=== PATIENT | female | born 1990 | race Two or more races ===

== ENCOUNTER 2020-06-20 16:04 | Inpatient (IN) ==
[2020-06-20] MEDS ORDERED: DINOPROSTONE VAG GEL 10 MG SYRINGE VAG ONE ×2 (16:18→17:00)
[2020-06-20] MEDS ORDERED: MEPERIDINE 50 MG/1 ML VIAL IV PRN (16:58)
[2020-06-20] MEDS ORDERED: ONDANSETRON 4 MG/2 ML VIAL IV PRN (16:58)
[2020-06-20] MEDS ORDERED: BUTORPHANOL 2 MG/ML VIAL IV PRN (16:58)
[2020-06-20 17:38] LABS: Basophils % 0.3 % (0.0-0.8); Eosinophils # 0.1 10*3/uL (0.0-0.87); Eosinophils % 0.4 % (0.00-10.9); Hematocrit 32.4 VOL% (35.7-47.0); Hemoglobin 10.2 GM/DL (12.0-16.0); Immature Granulocytes % 1.5 %; Immature Granulocytes Absolute 0.19 #; Lymphocytes # 2.5 10*3/uL (1.4-4.0); Lymphocytes % 19.9 % (21.3-54.2); Mean Corpuscular HGB Conc 31.5 GM/DL (32-36); Monocytes % 6.6 % (1.7-12.7); Neutrophils % 71.3 % (38.7-73.9); Platelet Count 237 T/CUMM (130-400); Red Blood Count 3.34 MC/CUMM (3.8-5.5); Red Cell Distribution Width 13.5 % (9.3-17.3); White Blood Count 12.6 T/CUMM (4-12)
[2020-06-20 17:50] LABS: Alanine Aminotransferase 17 U/L (13-56); Albumin 2.7 G/DL (3.4-5.0); Alkaline Phosphatase 151 U/L (45-117); Aspartate Amino Transferase 11 U/L (0-37); Bilirubin,Total < 0.39 MG/DL (0.2-1.0); Blood Urea Nitrogen 7 MG/DL (7-18); Calcium 8.7 MG/DL (8.5-10.1); Estimated Glom Filtration Rate 159 ML/MIN; Glucose 91 MG/DL (74-106); Osmolality,Calculated 272.7 MOS/KG (273-304); Total Protein 6.5 G/DL (6.4-8.3)
[2020-06-21] MEDS: LACTATED RINGERS 1,000 ML IV SCH ×4 (02:10→15:13)
[2020-06-21] MEDS: OXYTOCIN/LR 20 UNIT/1,000 ML BAG IV SCH ×2 (02:10→18:00)
[2020-06-21] MEDS ORDERED: CITRIC ACID/SODIUM CITRATE 30 ML UDCUP PO ONE (07:20)
[2020-06-21] MEDS ORDERED: FAMOTIDINE 20 MG/2 ML VIAL IV ONE (07:20)
[2020-06-21] MEDS ORDERED: NALOXONE 0.4 MG/ML VIAL IV PRN (07:20)
[2020-06-21] MEDS ORDERED: PROMETHAZINE 25 MG/1 ML VIAL IM ONE (07:20)
[2020-06-21] MEDS ORDERED: ePHEDrine 50 MG/ML VIAL IV PRN (07:20)
[2020-06-21] MEDS ORDERED: hydrOXYzine HCL 25 MG/1 ML VIAL IM PRN (07:20)
[2020-06-21] MEDS ORDERED: LACTATED RINGERS 1,000 ML IV ONE (07:20)
[2020-06-21] MEDS ORDERED: diphenhydrAMINE 50 MG/1 ML VIAL IV PRN ×2 (07:20)
[2020-06-21] MEDS: fentaNYL 2 MCG/ROPIV 0.2% EPID 100 ML EPIDURAL SCH ×2 (08:20→15:15)
[2020-06-21 11:18] LABS: Amorphous Crystals,Urine Occasional /HPF (Few); Apearance,Urine CLEAR (Clear); Bacteria,Urine Occasional /HPF (Few); Bilirubin,Urine Negative (Negative); Blood, Urine Moderate mg/dL (Negative); Calcium Oxalate Crystals,Urine Occasional /HPF (Few); Glucose,Urine (UA) Negative (Negative); Ketones,Urine Negative (Negative); Mucus,Urine Occasional /LPF (Occasional); Nitrite,Urine Negative (Negative); Protein,Urine Negative; RBC,Urine 62 /HPF (0-4); Squamous Epithelial Cell,Urine Occasional /HPF (0-10); Urine Color Yellow (Yellow); Urine Specific Gravity 1.016 (1.001-1.035); Urine Urobilinogen < 2.0 EU/DL (0.2-1.0); WBC,Urine 1 /HPF (0-6)
[2020-06-21] MEDS ORDERED: LIDOCAINE MPF 2% /EPI 20 ML VIAL ONE ×2 (11:47→15:22)
[2020-06-21] MEDS ORDERED: fentaNYL 100 MCG/2 ML VIAL ONE ×2 (11:47→15:22)
[2020-06-21] MEDS ORDERED: CARBOPROST TROMETHAMINE 250 MCG/ML AMP IM ONE (16:37)
[2020-06-21] MEDS ORDERED: miSOPROStoL 200 MCG TABLET ONE (16:37)
[2020-06-21] MEDS ORDERED: METHYLERGONOVINE 0.2 MG/1 ML AMP ONE (16:37)
[2020-06-21] MEDS ORDERED: TRANEXAMIC ACID 1,000 MG/10 ML VIAL ONE (16:37)
[2020-06-21] MEDS ORDERED: SODIUM CHLORIDE 0.9% 0 ML IV ONE (16:38)
[2020-06-21] MEDS ORDERED: LIDOCAINE 1% 50 ML VIAL ONE ×2 (16:38→17:10)
[2020-06-21 17:16] LABS: Cord Arterial Blood HCO3 20.8 MMOL/L
[2020-06-21 17:19] LABS: Cord Venous Blood HCO3 20.7 MMOL/L; Cord Venous Blood PCO2 43.3 MMHG; Cord Venous Blood PO2 23.2
[2020-06-21] MEDS ORDERED: ACETAMINOPHEN 325 MG TABLET PO PRN (20:49)
[2020-06-21] MEDS ORDERED: HYDROCORTISONE 2.5% RECTAL CREAM 30 GM TUBE TOP PRN (20:49)
[2020-06-21] MEDS ORDERED: BISACODYL 10 MG SUPP RECTAL PRN (20:49)
[2020-06-21] MEDS ORDERED: WITCH HAZEL PADS 100/JAR TOP PRN (20:49)
[2020-06-21] MEDS ORDERED: LANOLIN 50% CREAM 0.3 OZ TUBE TOP PRN (20:49)
[2020-06-21] MEDS ORDERED: OXYTOCIN/LR 20 UNIT/1,000 ML BAG IV ONE (20:49)
[2020-06-21] MEDS ORDERED: DIPH/TET/ACEL PERT BOOSTER VACCINE 0.5 ML VIAL IM ONE (20:49)
[2020-06-21] MEDS ORDERED: MEASLES/MUMPS/RUBELLA VACCINE 0.5 ML VIAL SUBCUT ONE (20:49)
[2020-06-21] MEDS ORDERED: RHO(D) IMMUNE GLOBULIN 300 MCG SYRINGE IM ONE (20:49)
[2020-06-21] MEDS ORDERED: oxyCODONE/ACETAMINOPHEN 5-325 MG TABLET PO PRN ×2 (20:49)
[2020-06-21] MEDS ORDERED: BENZOCAINE 20%/MENTHOL 0.5% SPRAY 56 GM CAN TOP PRN (20:49)
[2020-06-21] MEDS: DOCUSATE SODIUM 100 MG CAPSULE PO SCH (21:23)
[2020-06-22 06:46] LABS: Basophils % 0.3 % (0.0-0.8); Eosinophils % 0.3 % (0.00-10.9); Hematocrit 27.9 VOL% (35.7-47.0); Hemoglobin 9.3 GM/DL (12.0-16.0); Immature Granulocytes % 1.5 %; Immature Granulocytes Absolute 0.23 #; Lymphocytes # 2.2 10*3/uL (1.4-4.0); Lymphocytes % 14.5 % (21.3-54.2); Mean Corpuscular HGB Conc 33.3 GM/DL (32-36); Mean Corpuscular Volume 94.9 FL (87-102); Mean Platelet Volume 11.3 FL (9.6-12.0); Monocytes % 7.8 % (1.7-12.7); Neutrophils % 75.6 % (38.7-73.9); Platelet Count 179 T/CUMM (130-400); Red Blood Count 2.94 MC/CUMM (3.8-5.5); Red Cell Distribution Width 13.5 % (9.3-17.3); White Blood Count 15.3 T/CUMM (4-12)
[2020-06-22] MEDS: IBUPROFEN 800 MG TABLET PO PRN ×2 (10:50→20:20)
[2020-06-22] MEDS: DOCUSATE SODIUM 100 MG CAPSULE PO SCH ×2 (10:59→21:47)
[2020-06-22] MEDS ORDERED: RHO(D) IMMUNE GLOBULIN 300 MCG SYRINGE IM ONE (18:42)
[2020-06-23 05:38] VITALS: BP 118/61
[2020-06-23] MEDS: DOCUSATE SODIUM 100 MG CAPSULE PO SCH (09:51)
== END 2020-06-23 11:45 | disposition home or self-care (01) | DRG 807 ==
LOC: N.LDOUT 16:04 → N.LD 16:15 → N.LDOUT 16:24 → N.LD 16:59 → N.OB 06-21 20:35
PROVIDERS: ADMIT Obstetrics & Gynecology; ATTEND Obstetrics & Gynecology